=== PATIENT | male | born 1955 | race Caucasian/White ===

== ENCOUNTER 2022-11-28 12:23 | Day surgery (SDC) | payer MEDICARE, MEDICAID ==
[~2022-11-28] VITALS: Ht 177.8 cm; Wt 140.0 kg
[2022-11-28] VITALS (8 sets, daily range): BP systolic 123–169; BP diastolic 80–111; PULSE 75–82; RESP 12–19; TEMP 98.6; O2SAT 95–97
[2022-11-28] MEDS ORDERED: diphenhydrAMINE 25mg capsule PO PRN (12:45)
[2022-11-28] MEDS ORDERED: LORazepam 0.5 MG tablet PO PRN (12:45)
[2022-11-28] MEDS ORDERED: normal saline 1,000 ML IV SCH (12:45)
[2022-11-28] MEDS ORDERED: verapamil 2.5 mg/ml inj IV ONE (13:54)
[2022-11-28] MEDS ORDERED: iohexol 350MG/ML 100ml bottle IV ONE ×2 (13:54→14:30)
[2022-11-28] MEDS ORDERED: midazolam 1 mg/ML 2ml injection ONE (13:54)
[2022-11-28] MEDS ORDERED: LIDOcaine 1% (10mg/ml) 2ml vial ONE (13:54)
[2022-11-28] MEDS ORDERED: nitroGLYCERIN 500mcg/5mL D5W 5 ML IV ONE (13:54)
[2022-11-28] MEDS ORDERED: heparin 1,000unit/ml 10ml vial 10 ML ONE (13:54)
[2022-11-28] MEDS ORDERED: fentaNYL/PF 50MCG/1 ML 2ML syringe ONE (13:54)
[2022-11-28] MEDS ORDERED: ZINC50CA2 PO (14:02)
[2022-11-28] MEDS ORDERED: TADA20TA PO (14:02)
[2022-11-28] MEDS ORDERED: normal saline 1000ml 1,000 ML IV SCH (16:00)
[2022-11-28] MEDS ORDERED: HYDROcodone/acetaminophen 5mg/325mg tablet PO PRN (16:00)
[2022-11-28] MEDS ORDERED: HYDROcodone/acetaminophen 10/325mg tab PO PRN (16:00)
[2022-11-28 16:15] LABS: ISTAT HGB MIX 13.3 g/dl (14.0-17.9); ISTAT Hct MIX 39 %PCV (42-52); ISTAT O2 SATURATION MIX VENOUS 68 % (60-80); ISTAT SOURCE VEN
== END 2022-11-28 17:20 | disposition home or self-care (01) ==
LOC: SSTAY O 12:23
PROVIDERS: ATTEND Student in an Organized Health Care Education/Training Program
DX: I35.0 Nonrheumatic aortic (valve) stenosis (principal); I25.10 Atherosclerotic heart disease of native coronary artery without angina pectoris; I10 Essential (primary) hypertension; E66.9 Obesity, unspecified; Z68.44 Body mass index [BMI] 60.0-69.9, adult; G47.33 Obstructive sleep apnea (adult) (pediatric); I65.29 Occlusion and stenosis of unspecified carotid artery; Z86.16 Personal history of COVID-19; Z79.899 Other long term (current) drug therapy; Z72.89 Other problems related to lifestyle
CPT/HCPCS: 82803; 85014; 93005; 93460; 93571; 99152; 99153; A6258; J1644; J2250; J3490; J7030; Q9967; A6402; C1751; C1769; C1894; J3010

== ENCOUNTER 2023-01-18 14:00 | Inpatient (IN) | payer MEDICARE, MEDICAID ==
[2023-01-12 13:15] LABS: PRE OP PROTIME 10.8 SECONDS (9.0-12.0)
[2023-01-12 13:21] LABS: ALBUMIN 3.4 G/DL (3.4-5.0); ALBUMIN/GLOBULIN RATIO 0.9 (1.1-1.5); ALKALINE PHOSPHATASE 72 IU/L (46-116); BLOOD UREA NITROGEN 15 MG/DL (7-18); CALCIUM 9.2 MG/DL (8.5-10.1); CHLORIDE 104 MMOL/L (99-107); CREATININE 0.88 MG/DL (0.60-1.10); PRE OP ALT 31 U/L (30-65); PRE OP ANION GAP 8 (8-16); PRE OP AST 16 U/L (10-37); PRE OP BILIRUB, TOTAL 0.4 MG/DL (0.0-1.0); PRE OP SODIUM 139 MMOL/L (135-145); TOTAL CARBON DIOXIDE 27.4 MMOL/L (24-32); TOTAL PROTEIN 7.1 G/DL (6.4-8.2); eGFR 87 ML/MIN
[2023-01-12 13:23] LABS: PRE OP POTASSIUM 4.5 MMOL/L (3.4-5.1)
[2023-01-12 13:24] LABS: PRE OP GLUCOSE 212 MG/DL (70-104)
[2023-01-12 13:32] LABS: BILIRUBIN,URINE NEGATIVE (Neg); CLARITY,URINE SLIGHTLY CLOUDY (Clear); COLOR,URINE YELLOW (Yellow); GLUCOSE, URINE 500 mg/dl (Neg); KETONES,URINE TRACE mg/dl (Neg); LEUKOCYTE ESTERASE ,URINE NEGATIVE (Neg); NITRITES, URINE NEGATIVE (Neg); OCCULT BLOOD,URINE NEGATIVE (Neg); PROTEIN,URINE NEGATIVE (Neg)
[2023-01-12 13:36] LABS: UA COLLECTION TYPE CLN CATCH MIDSTREAM
[2023-01-12 13:37] LABS: BACTERIA,URINE NONE SEEN /HPF (Neg); MUCUS STRANDS FEW /LPF (Neg); RBC,URINE NONE SEEN /HPF (0-2); SQUAMOUS EPITHELIAL CELL,UR FEW /LPF (FEW); WBC,URINE NONE SEEN /HPF (0-4)
[2023-01-12 14:08] LABS: BASOPHILS % (AUTO) 0.4 % (0-1); EOSINOPHILS # (AUTO) 0.1 X10'3 (0-0.9); EOSINOPHILS % (AUTO) 1.6 % (0-6); HEMATOCRIT 42.8 % (42.0-52.0); HEMOGLOBIN 14.3 g/dl (14.0-17.9); LYMPHOCYTES # (AUTO) 1.8 X10'3 (1.1-4.8); LYMPHOCYTES % (AUTO) 19.4 % (21-51); MEAN CORPUSCULAR HEMOGLOBIN 29.1 PG (27.0-31.0); MEAN CORPUSCULAR HGB CONC 33.5 g/dL (33.0-36.5); MEAN CORPUSCULAR VOLUME 86.9 FL (78-98); MEAN PLATELET VOLUME 8.3 FL (7.4-10.4); MONOCYTES # (AUTO) 0.6 X10'3 (0-0.9); MONOCYTES % (AUTO) 6.3 % (2-12); NEUTROPHILS # (AUTO) 6.6 X10'3 (1.8-7.7); NEUTROPHILS % (AUTO) 72.3 % (42-75); PLATELET COUNT 209 X10'3 (140-440); RED BLOOD COUNT 4.92 X10'6 (4.70-6.10); RED CELL DISTRIBUTION WIDTH 13.4 % (11.5-14.5); WHITE BLOOD COUNT 9.1 X10'3 (4.5-11.0)
[2023-01-15 06:50] LABS: ABG BASE EXCESS 0.2 mmol/L (-2.0-2.0); ABG HCO3 24.9 mmol/L (22.0-26.0); ABG OXYGEN SATURATION 96.7 % (94-97); ABG PCO2 (T) 40.4 mmHg (35.0-48.0); ABG PH (T) 7.407 (7.340-7.440); ABG PO2 (T) 87.6 mmHg (75.0-100.0); ALLEN'S TEST POSITIVE; FCOHb 0.3 % (0.0-3.9); FHHb 3.3 % (0.0-5.0); FMetHb 0.2 % (0.0-1.5); FO2Hb 96.2 % (94-97); MODE ROOM AIR; TOTAL HEMOGLOBIN 15.3 G/dl (14.0-17.9)
[~2023-01-18] VITALS: Ht 177.8 cm; Wt 140.3 kg
[~2023-01-18 14:00] MED LIST: ASPI-611 PO; ATOR40TA PO; Insulin Reg/NS 100units/100mL 100 ML IV SCH; LORazepam 2 mg/ml vial IV ONE; TADA20TA PO; ZINC50CA2 PO; dextrose 50%-water 50ml dispensing syringe IV PRN; famotidine 20mg tablet PO ONE; metoprolol tartrate 12.5mg (1/2 tablet) PO ONE; ringers solution, lacted 1,000 ML IV SCH
[2023-01-23] VITALS (13 sets, daily range): BP systolic 114–186; BP diastolic 41–102; PULSE 75–89; RESP 13–19; TEMP 97.8; O2SAT 96–100
[2023-01-23] MEDS ORDERED: famotidine 20mg tablet PO ONE (05:30)
[2023-01-23] MEDS ORDERED: LORazepam 2 mg/ml vial IV ONE (05:30)
[2023-01-23] MEDS ORDERED: metoprolol tartrate 12.5mg (1/2 tablet) PO ONE (05:30)
[2023-01-23] MEDS ORDERED: dextrose 50%-water 50ml dispensing syringe IV PRN ×2 (05:30→17:40)
[2023-01-23] MEDS ORDERED: ringers solution, lacted 1,000 ML IV SCH (05:30)
[2023-01-23] MEDS ORDERED: Insulin Reg/NS 100units/100mL 100 ML IV SCH ×2 (05:30→08:15)
[2023-01-23] MEDS ORDERED: ceFAZolin inj. 3,000 MG in normal saline 100ml IV soln 100 ML IV ONE (08:15)
[2023-01-23] MEDS ORDERED: vancomycin 1,500 MG in NS 300ml IV soln IV ONE (08:16)
[2023-01-23] MEDS ORDERED: mupirocin 2% nasal ointment 1gm UD NS STA (11:06)
[2023-01-23] MEDS ORDERED: SUfentanil 50mcg/ml 1ml amp IV ONE ×2 (12:41→12:42)
[2023-01-23] MEDS ORDERED: propofol inj 20 ML IV ONE (12:44)
[2023-01-23] MEDS ORDERED: rocuronium 10mg/ml inj IV ONE ×2 (12:44→12:52)
[2023-01-23] MEDS ORDERED: LIDOcaine 1%/PF 5ML 10 MG/ML VIAL ONE (12:44)
[2023-01-23] MEDS ORDERED: epiNEPHrine 1 mg/ml inj ONE ×2 (12:45→12:59)
[2023-01-23] MEDS ORDERED: BUPIVAcaine/PF 2.5mg/ml (0.25%) 10ml vial ONE (12:45)
[2023-01-23] MEDS ORDERED: ceFAZolin 1000mg inj ONE (12:46)
[2023-01-23] MEDS ORDERED: vancomycin 1,000mg inj ONE (12:46)
[2023-01-23] MEDS ORDERED: LORazepam 2 mg/ml vial ONE (12:47)
[2023-01-23] MEDS ORDERED: nitroGLYCERIN in D5W 50mg/250ml (Tridil) infusion IV ONE (12:52)
[2023-01-23] MEDS ORDERED: aminocaproic acid 250 MG/1 ML inj. ONE (12:52)
[2023-01-23] MEDS ORDERED: sevoflurane 250ml liquid IH ONE (12:52)
[2023-01-23] MEDS ORDERED: protamine sulf. 10mg/ml inj. IV ONE (12:52)
[2023-01-23 13:43] LABS: ABG BASE EXCESS 0.9 mmol/L (-2.0-2.0); ABG HCO3 24.4 mmol/L (22.0-26.0); ABG OXYGEN SATURATION 99.5 % (94-97); ABG PCO2 35.8 mmHg (35.0-48.0); ABG PH 7.452 (7.340-7.440); ABG PO2 396.4 mmHg (75.0-100.0); CL (ABG) 103 mmol/L (99-107); FCOHb 0.3 % (0.0-3.9); FHHb 0.5 % (0.0-5.0); FMetHb 0.3 % (0.0-1.5); FO2Hb 98.9 % (94-97); GLUCOSE (ABG) 177 mg/dl (70-104); IONIZED CA (ABG) 1.12 mmol/L (1.10-1.30); K (ABG) 3.9 mmol/L (3.5-5.1); TOTAL HEMOGLOBIN 14.1 G/dl (14.0-17.9)
[2023-01-23] MEDS ORDERED: ceFAZolin 1000mg inj IR ONE (14:43)
[2023-01-23] MEDS ORDERED: vancomycin 1,000mg inj IVT ONE (14:46)
[2023-01-23] MEDS ORDERED: heparin 10,000 units/1 ML INJ IV ONE (14:47)
[2023-01-23 14:51] LABS: ABG BASE EXCESS VENOUS -2.8 mmol/L (-2.0 - 2.0); ABG HCO3 VENOUS 23.3 mmol/L (21.0-28.0); ABG OXYGEN SATURATION VENOUS 99.6 % (75 - 99 %); ABG PCO2 VENOUS 45.7 mmHg (41.0-54.0); ABG PH (VENOUS) 7.326 (7.310-7.450); CL (ABG) 103 mmol/L (99-107); FCOHb VENOUS 0.3 %; FHHb VENOUS 0.4 %; FO2Hb VENOUS 99.3 %; GLUCOSE (ABG) 160 mg/dl (70-104); IONIZED CA (ABG) 1.14 mmol/L (1.10-1.30); TOTAL HEMOGLOBIN 13.7 G/dl (14.0-17.9)
[2023-01-23] MEDS ORDERED: BUPIVAcaine/PF 2.5mg/ml (0.25%) 10ml vial IJ ONE (15:00)
[2023-01-23 15:10] LABS: ABG BASE EXCESS -0.2 mmol/L (-2.0-2.0); ABG HCO3 25.3 mmol/L (22.0-26.0); ABG OXYGEN SATURATION 99.1 % (94-97); ABG PCO2 45.2 mmHg (35.0-48.0); ABG PH 7.366 (7.340-7.440); ABG PO2 305.4 mmHg (75.0-100.0); CL (ABG) 101 mmol/L (99-107); FCOHb 0.3 % (0.0-3.9); FHHb 0.9 % (0.0-5.0); FMetHb 0.3 % (0.0-1.5); FO2Hb 98.5 % (94-97); GLUCOSE (ABG) 134 mg/dl (70-104); IONIZED CA (ABG) 1.01 mmol/L (1.10-1.30); K (ABG) 3.5 mmol/L (3.5-5.1); TOTAL HEMOGLOBIN 10.8 G/dl (14.0-17.9)
[2023-01-23 15:43] LABS: ABG BASE EXCESS VENOUS -0.1 mmol/L (-2.0 - 2.0); ABG HCO3 VENOUS 25.3 mmol/L (21.0-28.0); ABG OXYGEN SATURATION VENOUS 82.7 % (75 - 99 %); ABG PCO2 VENOUS 44.5 mmHg (41.0-54.0); ABG PH (VENOUS) 7.373 (7.310-7.450); ABG PO2 VENOUS 45.1 mmHg (25.0-35.0); CL (ABG) 101 mmol/L (99-107); FHHb VENOUS 17.2 %; FMetHb VENOUS 0.3 % (0.0 - 0.5); FO2Hb VENOUS 82.5 %; GLUCOSE (ABG) 136 mg/dl (70-104); K (ABG) 3.6 mmol/L (3.5-5.1); TOTAL HEMOGLOBIN 10.4 G/dl (14.0-17.9)
[2023-01-23 16:07] LABS: ABG BASE EXCESS 0.2 mmol/L (-2.0-2.0); ABG HCO3 25.9 mmol/L (22.0-26.0); ABG OXYGEN SATURATION 99.4 % (94-97); ABG PCO2 46.6 mmHg (35.0-48.0); ABG PH 7.362 (7.340-7.440); CL (ABG) 102 mmol/L (99-107); FCOHb 0.3 % (0.0-3.9); FHHb 0.6 % (0.0-5.0); FMetHb 0.3 % (0.0-1.5); FO2Hb 98.8 % (94-97); GLUCOSE (ABG) 143 mg/dl (70-104); IONIZED CA (ABG) 1.02 mmol/L (1.10-1.30); K (ABG) 3.8 mmol/L (3.5-5.1); TOTAL HEMOGLOBIN 10.7 G/dl (14.0-17.9)
[2023-01-23 16:48] LABS: ABG BASE EXCESS 0.6 mmol/L (-2.0-2.0); ABG HCO3 24.7 mmol/L (22.0-26.0); ABG OXYGEN SATURATION 99.3 % (94-97); ABG PCO2 37.6 mmHg (35.0-48.0); ABG PH 7.435 (7.340-7.440); ABG PO2 335.5 mmHg (75.0-100.0); CL (ABG) 101 mmol/L (99-107); FCOHb 0.3 % (0.0-3.9); FHHb 0.7 % (0.0-5.0); FMetHb 0.3 % (0.0-1.5); FO2Hb 98.7 % (94-97); GLUCOSE (ABG) 136 mg/dl (70-104); IONIZED CA (ABG) 1.29 mmol/L (1.10-1.30); K (ABG) 4.2 mmol/L (3.5-5.1); TOTAL HEMOGLOBIN 9.8 G/dl (14.0-17.9)
[2023-01-23] MEDS ORDERED: albumin (Human) 5% 250ml 250 ML IV ONE ×2 (17:04→18:02)
[2023-01-23 17:21] LABS: ABG BASE EXCESS -2.4 mmol/L (-2.0-2.0); ABG HCO3 20.9 mmol/L (22.0-26.0); ABG OXYGEN SATURATION 98.9 % (94-97); ABG PCO2 30.9 mmHg (35.0-48.0); ABG PH 7.449 (7.340-7.440); ABG PO2 160.5 mmHg (75.0-100.0); CL (ABG) 104 mmol/L (99-107); FCOHb 0.3 % (0.0-3.9); FHHb 1.1 % (0.0-5.0); FMetHb 0.3 % (0.0-1.5); FO2Hb 98.3 % (94-97); GLUCOSE (ABG) 116 mg/dl (70-104); IONIZED CA (ABG) 1.13 mmol/L (1.10-1.30); K (ABG) 3.8 mmol/L (3.5-5.1); TOTAL HEMOGLOBIN 9.8 G/dl (14.0-17.9)
[2023-01-23 17:24] LABS: ACTIVATED CLOTTING TIME 129 SEC (101-148)
[2023-01-23] MEDS ORDERED: sodium chloride 0.45% 1,000 ML IV SCH (17:40)
[2023-01-23] MEDS ORDERED: bisacodyl 10mg suppository rectal RC PRN (17:40)
[2023-01-23] MEDS ORDERED: NORepinephrine 8mg/ 250ml NS 250 ML IV PRN (17:40)
[2023-01-23] MEDS ORDERED: mineral oil 133ml enema RC PRN (17:40)
[2023-01-23] MEDS ORDERED: insulin glargine (Lantus) pen - multi-dose SQ PRN (17:40)
[2023-01-23] MEDS ORDERED: potassium Cl 20 mEq SR tablet PO PRN (17:40)
[2023-01-23] MEDS ORDERED: magnesium 2GM in 50ml NS 50 ML IV PRN (17:40)
[2023-01-23] MEDS ORDERED: potassium Cl 40MEQ/1/2NS 520ml 520 ML IV PRN (17:40)
[2023-01-23] MEDS ORDERED: metoclopramide 5 mg/ml inj IV PRN (17:40)
[2023-01-23] MEDS ORDERED: sodium phosphate inj. 15 MMOL in dextrose 5%-water 250 ML IV PRN (17:40)
[2023-01-23] MEDS ORDERED: niCARDipine-NS 40mg/200ml IVPB 200 ML IV PRN (17:40)
[2023-01-23] MEDS ORDERED: ondansetron/PF 4mg/2ml inj IV PRN (17:40)
[2023-01-23] MEDS ORDERED: nitroGLYCERIN-Tridil 50MG/D5W 250 ML IV SCH (17:40)
[2023-01-23] MEDS: Insulin Reg/NS 100units/100mL 100 ML IV SCH (17:40)
[2023-01-23] MEDS ORDERED: Neutra Phos packet PO PRN (17:40)
[2023-01-23] MEDS ORDERED: potassium Cl 40MEQ/270ML bag 250 ML IV PRN (17:40)
[2023-01-23] MEDS ORDERED: magnesium hydroxide 30ml (MOM) UD suspension PO PRN (17:40)
[2023-01-23] MEDS ORDERED: sodium phosphate inj. 30 MMOL in dextrose 5%-water 250 ML IV PRN (17:40)
[2023-01-23] MEDS ORDERED: morphine 2 MG/ML inj. syringe IV PRN (17:40)
[2023-01-23] MEDS ORDERED: acetaminophen 325mg tablet PO PRN ×2 (17:40)
[2023-01-23] MEDS ORDERED: potassium CL 10mEq/100ml bag 100 ML IV PRN (17:40)
[2023-01-23] MEDS ORDERED: albumin (Human) 5% 250ml 250 ML IV PRN (17:40)
[2023-01-23] MEDS ORDERED: magnesium 4gm in 100ml NS 100 ML IV PRN (17:40)
[2023-01-23 17:55] LABS: APTT 29 SECONDS (22-32); INR 1.5 INR; PROTHROMBIN TIME 15.8 SECONDS (9.0-12.0)
[2023-01-23 17:59] LABS: BASOPHILS % (AUTO) 0.2 % (0-1); EOSINOPHILS # (AUTO) 0.1 X10'3 (0-0.9); EOSINOPHILS % (AUTO) 0.7 % (0-6); HEMATOCRIT 26.2 % (42.0-52.0); LYMPHOCYTES # (AUTO) 1.2 X10'3 (1.1-4.8); LYMPHOCYTES % (AUTO) 13.6 % (21-51); MEAN CORPUSCULAR HEMOGLOBIN 29.6 PG (27.0-31.0); MEAN CORPUSCULAR HGB CONC 34.4 g/dL (33.0-36.5); MEAN CORPUSCULAR VOLUME 86.2 FL (78-98); MEAN PLATELET VOLUME 8.2 FL (7.4-10.4); MONOCYTES # (AUTO) 0.3 X10'3 (0-0.9); MONOCYTES % (AUTO) 3.1 % (2-12); NEUTROPHILS # (AUTO) 7.1 X10'3 (1.8-7.7); NEUTROPHILS % (AUTO) 82.4 % (42-75); PLATELET COUNT 118 X10'3 (140-440); RED BLOOD COUNT 3.04 X10'6 (4.70-6.10); WHITE BLOOD COUNT 8.6 X10'3 (4.5-11.0)
--- NOTE | 2023-01-23 18:38 | NUR ---
Received to room 2043, accompanied by Sai Abreu, Dr. Stiles and Samson Johnson POLL WATCHER and surgical crew. Placed on ventilator, to recruiting assistant, arterial line and PA line pressure zeroed & monitored. Chest tubes to suction at 20 cm. Jenkins cath to gravity drainage. Dressings are dry and intact. See assessment record. All vasoactive drugs are infusing via central line.
[2023-01-23 18:42] LABS: BASOPHILS # (AUTO) 0.1 X10'3 (0-0.2); BASOPHILS % (AUTO) 0.5 % (0-1); EOSINOPHILS # (AUTO) 0.1 X10'3 (0-0.9); EOSINOPHILS % (AUTO) 0.5 % (0-6); HEMOGLOBIN 10.2 g/dl (14.0-17.9); LYMPHOCYTES # (AUTO) 1.1 X10'3 (1.1-4.8); MEAN CORPUSCULAR HEMOGLOBIN 29.5 PG (27.0-31.0); MEAN CORPUSCULAR VOLUME 86.8 FL (78-98); MEAN PLATELET VOLUME 7.8 FL (7.4-10.4); MONOCYTES # (AUTO) 0.5 X10'3 (0-0.9); MONOCYTES % (AUTO) 4.5 % (2-12); NEUTROPHILS # (AUTO) 10.1 X10'3 (1.8-7.7); NEUTROPHILS % (AUTO) 85.5 % (42-75); PLATELET COUNT 178 X10'3 (140-440); RED BLOOD COUNT 3.45 X10'6 (4.70-6.10); RED CELL DISTRIBUTION WIDTH 13.2 % (11.5-14.5); WHITE BLOOD COUNT 11.8 X10'3 (4.5-11.0)
[2023-01-23 18:48] LABS: ABG BASE EXCESS -2.7 mmol/L (-2.0-2.0); ABG HCO3 22.2 mmol/L (22.0-26.0); ABG OXYGEN SATURATION 99.2 % (94-97); ABG PCO2 (T) 38.9 mmHg (35.0-48.0); ABG PH (T) 7.374 (7.340-7.440); FHHb 0.8 % (0.0-5.0); FMetHb 0.3 % (0.0-1.5); FO2Hb 98.9 % (94-97); MODE Vent- SIMV VC; PATIENT TEMPERATURE 36.9; PEEP 5 cm H2O; RESPIRATORY RATE 14 b/min; TIDAL VOLUME 700 mL; TOTAL HEMOGLOBIN 10.8 G/dl (14.0-17.9)
[2023-01-23 18:57] LABS: ALANINE AMINOTRANSFERASE 18 U/L (12-78); ALBUMIN 2.8 G/DL (3.4-5.0); ALBUMIN/GLOBULIN RATIO 1.6 (1.1-1.5); ALKALINE PHOSPHATASE 37 IU/L (46-116); ANION GAP 10 (8-16); ASPARTATE AMINO TRANSFERASE 25 U/L (10-37); BILIRUBIN,TOTAL 0.6 MG/DL (0.1-1.0); BLOOD UREA NITROGEN 12 MG/DL (7-18); BUN/CREATININE RATIO 12.1 (10.0-20.0); CALCIUM 7.2 MG/DL (8.5-10.1); CHLORIDE 108 MMOL/L (99-107); CREATININE 0.99 MG/DL (0.60-1.10); GLUCOSE 180 MG/DL (70-104); MAGNESIUM 2.9 MG/DL (1.5-2.4); PHOSPHORUS 1.9 MG/DL (2.3-4.5); SODIUM 141 MMOL/L (135-145); TOTAL CARBON DIOXIDE 22.8 MMOL/L (24-32); TOTAL PROTEIN 4.6 G/DL (6.4-8.2); eCRCL 76 ML/MIN; eGFR 76 ML/MIN
[2023-01-23 19:02] LABS: POTASSIUM 3.7 MMOL/L (3.5-5.1)
[2023-01-23 19:03] LABS: APTT 31 SECONDS (22-32); FIBRINOGEN 204 MG/DL (177-424); INR 1.2 INR; PROTHROMBIN TIME 12.9 SECONDS (9.0-12.0)
[2023-01-23] MEDS: potassium Cl 20mEq/100mL bag 100 ML IV PRN ×2 (19:26→22:07)
[2023-01-23] MEDS ORDERED: mupirocin 2% ointment 22GM NS SCH (20:00)
[2023-01-23 20:21] LABS: TOTAL CELLS COUNTED 100
[2023-01-23 20:22] LABS: PLATELET ESTIMATE NORMAL
[2023-01-23] MEDS: vancomycin/NS 1 GM ADD-VANTAGE 250 ML IV SCH (20:26)
[2023-01-23] MEDS: sennosides/docusate sodium tablet PO SCH (20:59)
[2023-01-23] MEDS: atorvastatin 10mg tablet PO SCH (20:59)
[2023-01-23] MEDS: morphine 4 MG/ML inj SYRINge IV PRN ×2 (21:25→21:28)
--- NOTE | 2023-01-23 23:30 | NUR ---
pt switched to cpap will monitor closely
[2023-01-24] VITALS (28 sets, daily range): BP systolic 100–162; BP diastolic 40–75; PULSE 81–101; RESP 13–31; O2SAT 92–98
[2023-01-24] MEDS: ceFAZolin/D5W- 1GM premix 50 ML IV SCH ×3 (00:22→16:14)
[2023-01-24 00:27] LABS: ABG BASE EXCESS -7.1 mmol/L (-2.0-2.0); ABG HCO3 18.3 mmol/L (22.0-26.0); ABG OXYGEN SATURATION 97.4 % (94-97); ABG PCO2 (T) 37.1 mmHg (35.0-48.0); ABG PH (T) 7.312 (7.340-7.440); ABG PO2 (T) 109.7 mmHg (75.0-100.0); FCOHb 0.3 % (0.0-3.9); FHHb 2.6 % (0.0-5.0); FMetHb 0.3 % (0.0-1.5); FO2Hb 96.8 % (94-97); PATIENT TEMPERATURE 37.4; PEEP 5 cm H2O; TOTAL HEMOGLOBIN 10.3 G/dl (14.0-17.9)
[2023-01-24 00:43] LABS: BASOPHILS % (AUTO) 0.1 % (0-1); EOSINOPHILS % (AUTO) 0 % (0-6); HEMATOCRIT 28.1 % (42.0-52.0); HEMOGLOBIN 9.6 g/dl (14.0-17.9); LYMPHOCYTES # (AUTO) 0.5 X10'3 (1.1-4.8); LYMPHOCYTES % (AUTO) 4.1 % (21-51); MEAN CORPUSCULAR HEMOGLOBIN 29.6 PG (27.0-31.0); MEAN CORPUSCULAR HGB CONC 34.2 g/dL (33.0-36.5); MEAN CORPUSCULAR VOLUME 86.7 FL (78-98); MEAN PLATELET VOLUME 7.9 FL (7.4-10.4); MONOCYTES # (AUTO) 0.4 X10'3 (0-0.9); MONOCYTES % (AUTO) 3.4 % (2-12); NEUTROPHILS # (AUTO) 12.1 X10'3 (1.8-7.7); NEUTROPHILS % (AUTO) 92.4 % (42-75); PLATELET COUNT 209 X10'3 (140-440); RED BLOOD COUNT 3.24 X10'6 (4.70-6.10); RED CELL DISTRIBUTION WIDTH 13.3 % (11.5-14.5); WHITE BLOOD COUNT 13.1 X10'3 (4.5-11.0)
[2023-01-24 00:54] LABS: ABG BASE EXCESS -6.5 mmol/L (-2.0-2.0); ABG PCO2 (T) 38.4 mmHg (35.0-48.0); ABG PH (T) 7.314 (7.340-7.440); ABG PO2 (T) 99.7 mmHg (75.0-100.0); FCOHb 0.1 % (0.0-3.9); FMetHb 0.3 % (0.0-1.5); FO2Hb 96.6 % (94-97); MODE VENT-CPAP/PS; PATIENT TEMPERATURE 37.4; PEEP 5 cm H2O; TOTAL HEMOGLOBIN 10.5 G/dl (14.0-17.9)
[2023-01-24 00:55] LABS: ALANINE AMINOTRANSFERASE 19 U/L (12-78); ALBUMIN 3.2 G/DL (3.4-5.0); ALBUMIN/GLOBULIN RATIO 1.5 (1.1-1.5); ALKALINE PHOSPHATASE 41 IU/L (46-116); ANION GAP 10 (8-16); ASPARTATE AMINO TRANSFERASE 28 U/L (10-37); BILIRUBIN,TOTAL 0.7 MG/DL (0.1-1.0); BLOOD UREA NITROGEN 18 MG/DL (7-18); BUN/CREATININE RATIO 12.9 (10.0-20.0); CALCIUM 7.5 MG/DL (8.5-10.1); CHLORIDE 107 MMOL/L (99-107); GLUCOSE 215 MG/DL (70-104); MAGNESIUM 2.6 MG/DL (1.5-2.4); PHOSPHORUS 4.5 MG/DL (2.3-4.5); POTASSIUM 4.4 MMOL/L (3.5-5.1); SODIUM 140 MMOL/L (135-145); TOTAL CARBON DIOXIDE 22.8 MMOL/L (24-32); TOTAL PROTEIN 5.3 G/DL (6.4-8.2); eCRCL 54 ML/MIN; eGFR 51 ML/MIN
[2023-01-24] MEDS: HYDROcodone/acetaminophen 10/325mg tab PO PRN ×3 (04:38→18:19)
--- NOTE | 2023-01-24 06:15 | NUR ---
Patient in room ICU 2043. I have received report from BEBA Ty and had the opportunity to ask questions and assume patient care.
[2023-01-24] MEDS ORDERED: dextrose 50%-water 50ml dispensing syringe IV PRN ×2 (07:05)
[2023-01-24] MEDS ORDERED: DEXTROSE 15 GM of carb/4 tabs (each vial/BOTTLE has 4 tablets) PO PRN ×2 (07:05)
[2023-01-24] MEDS ORDERED: glucagon, human recombinant 1mg kit SUBCUT PRN (07:05)
[2023-01-24 07:58] LABS: BASOPHILS % (AUTO) 0.1 % (0-1); EOSINOPHILS % (AUTO) 0 % (0-6); HEMATOCRIT 27.3 % (42.0-52.0); HEMOGLOBIN 9.3 g/dl (14.0-17.9); LYMPHOCYTES # (AUTO) 0.6 X10'3 (1.1-4.8); LYMPHOCYTES % (AUTO) 3.8 % (21-51); MEAN CORPUSCULAR HEMOGLOBIN 29.4 PG (27.0-31.0); MEAN CORPUSCULAR VOLUME 86.6 FL (78-98); MEAN PLATELET VOLUME 8.1 FL (7.4-10.4); MONOCYTES # (AUTO) 1.1 X10'3 (0-0.9); NEUTROPHILS % (AUTO) 89.1 % (42-75); PLATELET COUNT 188 X10'3 (140-440); RED BLOOD COUNT 3.15 X10'6 (4.70-6.10); RED CELL DISTRIBUTION WIDTH 13.6 % (11.5-14.5); WHITE BLOOD COUNT 15.7 X10'3 (4.5-11.0)
[2023-01-24] MEDS ORDERED: metoprolol tartrate 12.5mg (1/2 tablet) PO SCH ×2 (08:00→20:00)
[2023-01-24] MEDS ORDERED: albumin (Human) 5% 250ml 250 ML IV ONE (08:15)
[2023-01-24 08:20] LABS: ALANINE AMINOTRANSFERASE 14 U/L (12-78); ALBUMIN 3.2 G/DL (3.4-5.0); ALBUMIN/GLOBULIN RATIO 1.2 (1.1-1.5); ALKALINE PHOSPHATASE 40 IU/L (46-116); ANION GAP 8 (8-16); ASPARTATE AMINO TRANSFERASE 42 U/L (10-37); BILIRUBIN,TOTAL 0.5 MG/DL (0.1-1.0); BLOOD UREA NITROGEN 20 MG/DL (7-18); BUN/CREATININE RATIO 17.2 (10.0-20.0); CALCIUM 8.1 MG/DL (8.5-10.1); CHLORIDE 105 MMOL/L (99-107); CREATININE 1.16 MG/DL (0.60-1.10); GLUCOSE 215 MG/DL (70-104); POTASSIUM 5.1 MMOL/L (3.5-5.1); SODIUM 137 MMOL/L (135-145); TOTAL CARBON DIOXIDE 23.8 MMOL/L (24-32); TOTAL PROTEIN 5.8 G/DL (6.4-8.2); eCRCL 65 ML/MIN; eGFR 63 ML/MIN
[2023-01-24] MEDS: aspirin 81mg tab.chew PO SCH (08:33)
[2023-01-24] MEDS: sennosides/docusate sodium tablet PO SCH ×2 (08:34→20:27)
[2023-01-24] MEDS: vancomycin/NS 1 GM ADD-VANTAGE 250 ML IV SCH ×2 (08:38→20:27)
[2023-01-24] MEDS: insulin Lispro (HumaLOG) vial - multi-dose SQ SCH ×3 (08:38→20:52)
[2023-01-24] MEDS ORDERED: metoprolol tartrate 12.5mg (1/2 tablet) PO ONE (09:35)
--- NOTE | 2023-01-24 11:09 | NUR ---
Initial: Pt admit for severe aortic stenosis in association with significant three-vessel coronary disease. Noted pt with an elevated A1c of 8.1% with no PMH DM per EMR. RN states she received in report that pt has been provided with a DM dx this admit. Pt currently POD #1 s/p CABG x 3 and AVR, just extubated early this morning per EMR. Pt would benefit from post CABG and DM nutrition therapy educations as appropriate. Pt currently on a no concentrated sweets diet, pending documentation of PO intake. No documented BM since admit though pt with routine and PRN bowel care available. Will continue to follow closely and make recommendations as appropriate. Recommendations: 1) Continue no concentrated sweets diet; monitor BG trends and need for CHO controlled diet 2) Monitor need for ONS/additional protein 3) Routine bowel care 4) Weekly scaled weights 5) DM and post CABG nutrition therapy educations as appropriate; pt s/p CABG x3 and AVR 01/23, A1c 8.1% new DM dx this admit Addendum: 01/24/23 at [address] Amended: Links added.
--- NOTE | 2023-01-24 18:23 | NUR ---
Problems reprioritized. Patient report given, questions answered & plan of care reviewed with BEBA Reed.
[2023-01-24] MEDS: mupirocin 2% nasal ointment 1gm UD NS SCH (20:27)
[2023-01-24] MEDS: atorvastatin 10mg tablet PO SCH (20:27)
[2023-01-25] VITALS (25 sets, daily range): BP systolic 111–154; BP diastolic 54–90; PULSE 75–95; RESP 12–25; O2SAT 94–97
[2023-01-25] MEDS: ceFAZolin/D5W- 1GM premix 50 ML IV SCH ×2 (00:16→08:02)
[2023-01-25] MEDS: HYDROcodone/acetaminophen 10/325mg tab PO PRN ×2 (02:14→23:32)
[2023-01-25] MEDS: Insulin Reg/NS 100units/100mL 100 ML IV SCH (03:00)
[2023-01-25 03:17] LABS: BASOPHILS % (AUTO) 0.2 % (0-1); EOSINOPHILS % (AUTO) 0 % (0-6); HEMOGLOBIN 8.8 g/dl (14.0-17.9); LYMPHOCYTES # (AUTO) 0.9 X10'3 (1.1-4.8); LYMPHOCYTES % (AUTO) 5.8 % (21-51); MEAN CORPUSCULAR HEMOGLOBIN 29.3 PG (27.0-31.0); MEAN CORPUSCULAR HGB CONC 33.8 g/dL (33.0-36.5); MEAN CORPUSCULAR VOLUME 86.5 FL (78-98); MEAN PLATELET VOLUME 8.3 FL (7.4-10.4); MONOCYTES # (AUTO) 1.3 X10'3 (0-0.9); MONOCYTES % (AUTO) 8.6 % (2-12); NEUTROPHILS % (AUTO) 85.4 % (42-75); PLATELET COUNT 148 X10'3 (140-440); RED CELL DISTRIBUTION WIDTH 13.5 % (11.5-14.5); WHITE BLOOD COUNT 15.2 X10'3 (4.5-11.0)
[2023-01-25 03:26] LABS: ALBUMIN 3.4 G/DL (3.4-5.0); ANION GAP 5 (8-16); BLOOD UREA NITROGEN 23 MG/DL (7-18); BUN/CREATININE RATIO 24.2 (10.0-20.0); CALCIUM 8.2 MG/DL (8.5-10.1); CHLORIDE 100 MMOL/L (99-107); CREATININE 0.95 MG/DL (0.60-1.10); GLUCOSE 212 MG/DL (70-104); POTASSIUM 4.7 MMOL/L (3.5-5.1); SODIUM 133 MMOL/L (135-145); TOTAL CARBON DIOXIDE 27.9 MMOL/L (24-32); eCRCL 79 ML/MIN; eGFR 79 ML/MIN
--- NOTE | 2023-01-25 06:30 | NUR ---
Patient in room ICU 2043. I have received report from Manish and had the opportunity to ask questions and assume patient care.
[2023-01-25] MEDS ORDERED: potassium Cl 40MEQ/270ML bag 250 ML IV PRN (07:55)
[2023-01-25] MEDS ORDERED: potassium Cl 40MEQ/1/2NS 520ml 520 ML IV PRN (07:55)
[2023-01-25] MEDS ORDERED: magnesium 4gm in 100ml NS 100 ML IV PRN (07:55)
[2023-01-25] MEDS ORDERED: magnesium 2GM in 50ml NS 50 ML IV PRN (07:55)
[2023-01-25] MEDS ORDERED: potassium CL 10mEq/100ml bag 100 ML IV PRN (07:55)
[2023-01-25] MEDS ORDERED: potassium Cl 20 mEq SR tablet PO PRN ×2 (07:55)
[2023-01-25] MEDS ORDERED: potassium Cl 20mEq/100mL bag 100 ML IV PRN (07:55)
[2023-01-25] MEDS: aspirin 81mg tab.chew PO SCH (08:00)
[2023-01-25] MEDS: pantoprazole 40mg Tablet.DR PO SCH (08:01)
[2023-01-25] MEDS: metoprolol tartrate 50mg tablet PO SCH ×2 (08:01→19:11)
[2023-01-25] MEDS: mupirocin 2% nasal ointment 1gm UD NS SCH (08:01)
[2023-01-25] MEDS: sennosides/docusate sodium tablet PO SCH ×2 (08:01→19:11)
[2023-01-25] MEDS: insulin Lispro (HumaLOG) vial - multi-dose SQ SCH ×2 (08:04→12:52)
[2023-01-25] MEDS: magnesium Cl slow-release 64mg tablet PO SCH ×2 (11:04→19:11)
--- NOTE | 2023-01-25 13:58 | NUR ---
F/u: Attempted visit with pt at bedside however pt sleeping. Will f/u at another time. Addendum: 01/25/23 at [address] Amended: Links added.
--- NOTE | 2023-01-25 14:57 | NUR ---
ashleyey d/c per order
--- NOTE | 2023-01-25 18:29 | NUR ---
Problems reprioritized. Patient report given, questions answered & plan of care reviewed with Kianna.
[2023-01-25] MEDS: atorvastatin 10mg tablet PO SCH (20:53)
[2023-01-25] MEDS: insulin glargine (Lantus) pen - multi-dose SQ SCH (21:02)
[2023-01-26] VITALS (14 sets, daily range): BP systolic 121–174; BP diastolic 71–102; PULSE 63–90; RESP 12–27; TEMP 97.8–99.2; O2SAT 90–98
[2023-01-26 02:34] LABS: BASOPHILS % (AUTO) 0 % (0-1); EOSINOPHILS % (AUTO) 0 % (0-6); HEMATOCRIT 25.8 % (42.0-52.0); HEMOGLOBIN 8.7 g/dl (14.0-17.9); LYMPHOCYTES # (AUTO) 1.2 X10'3 (1.1-4.8); LYMPHOCYTES % (AUTO) 7.9 % (21-51); MEAN CORPUSCULAR HEMOGLOBIN 29.2 PG (27.0-31.0); MEAN CORPUSCULAR HGB CONC 33.7 g/dL (33.0-36.5); MEAN CORPUSCULAR VOLUME 86.8 FL (78-98); MEAN PLATELET VOLUME 8.1 FL (7.4-10.4); MONOCYTES # (AUTO) 1.3 X10'3 (0-0.9); MONOCYTES % (AUTO) 8.8 % (2-12); NEUTROPHILS # (AUTO) 12.8 X10'3 (1.8-7.7); NEUTROPHILS % (AUTO) 83.3 % (42-75); PLATELET COUNT 148 X10'3 (140-440); RED BLOOD COUNT 2.97 X10'6 (4.70-6.10); RED CELL DISTRIBUTION WIDTH 13.7 % (11.5-14.5); WHITE BLOOD COUNT 15.4 X10'3 (4.5-11.0)
[2023-01-26 02:39] LABS: ANION GAP 5 (8-16); BLOOD UREA NITROGEN 20 MG/DL (7-18); BUN/CREATININE RATIO 23.8 (10.0-20.0); CALCIUM 8.4 MG/DL (8.5-10.1); CHLORIDE 101 MMOL/L (99-107); CREATININE 0.84 MG/DL (0.60-1.10); GLUCOSE 169 MG/DL (70-104); POTASSIUM 4.5 MMOL/L (3.5-5.1); SODIUM 136 MMOL/L (135-145); TOTAL CARBON DIOXIDE 29.9 MMOL/L (24-32); eCRCL 89 ML/MIN; eGFR > 90 ML/MIN
--- NOTE | 2023-01-26 05:05 | NUR ---
Awake, requesting to get up to chair. Assisted up to chair with min assist. using cardiac precautions appropriately. RIJ DC'd at this time without complication. Direct pressure applied x 5min, then DSD applied.
--- NOTE | 2023-01-26 06:20 | NUR ---
Report called to BEBA New on Tele. Opportunity for questions provided, all questions answered. Verbalizes understanding of info given
--- NOTE | 2023-01-26 06:30 | NUR ---
Patient in room PCU 3023. I have received report from BEBA Hutchison and had the opportunity to ask questions and assume patient care.
--- NOTE | 2023-01-26 06:30 | NUR ---
pt tx to tele in by keisha and nilsa
[2023-01-26] MEDS: pantoprazole 40mg Tablet.DR PO SCH (07:50)
[2023-01-26] MEDS: aspirin 81mg tab.chew PO SCH (07:50)
[2023-01-26] MEDS ORDERED: magnesium citrate 296ml oral solution PO ONE (08:35)
[2023-01-26] MEDS ORDERED: METF-1203 PO (08:40)
[2023-01-26] MEDS ORDERED: HYDR-3972 PO (08:40)
[2023-01-26] MEDS ORDERED: METO50TA16 PO (08:40)
[2023-01-26] MEDS: magnesium Cl slow-release 64mg tablet PO SCH ×2 (09:34→21:26)
[2023-01-26] MEDS: sennosides/docusate sodium tablet PO SCH ×2 (09:34→21:26)
[2023-01-26] MEDS: metoprolol tartrate 50mg tablet PO SCH ×2 (09:34→21:27)
[2023-01-26] MEDS: insulin Lispro (HumaLOG) vial - multi-dose SQ SCH ×3 (09:58→19:08)
[2023-01-26] MEDS: HYDROcodone/acetaminophen 10/325mg tab PO PRN ×2 (13:54→21:28)
--- NOTE | 2023-01-26 14:08 | NUR ---
Reassessment: Pt continues on no concentrated sweets diet with overall poor PO intake, documented with average 48% PO intake, however up to 100% PO intake of breakfast this morning. Pt seen at bedside, states appetite has been low since surgery and agrees to Ensure and Rao shake to optimize nutrient intake and promote wound healing, to be sent pending physician approval in EMR. Additional food preferences were obtained and d/w dietary, see below. Pt denies food allergies, difficult chewing/swallowing, or difficulty feeding self with incision site. Pt provided with written and verbal post CABG nutrition therapy education and written DM education as pt reports knowledge on DM management d/t significant family hx of DM. Pt states he currently does not have a PCP and is unaware of what DM medications he may receive upon discharge. RD encouraged pt to obtain a PCP for further DM management and d/w physician regarding medication rx. Pt provided with RD contact information and encouraged to reach out if needed. Information obtained from pt was d/w bedside RN who will d/w attending physician. Noted pt still with no BM since admit, currently receiving routine bowel care and with additional PRN bowel care available. Noted pt received one time Magnesium Citrate today. Per RN pt to receive PRN bowel care if no BM today. Will continue to follow closely. Recommendations: 1) Continue no concentrated sweets diet; monitor BG trends and need for CHO controlled diet 2) Chocolate Ensure Enlive TID, vanilla Rao shake BIDLD, pending physician approval in EMR 3) [place] food preferences: No broccoli, peas, green beans, asparagus, cauliflower, or brussel sprouts 4) Routine and PRN bowel care 5) Weekly scaled weights Addendum: 01/26/23 at [address] Amended: Links added.
[2023-01-26] MEDS: JUVEN Shake w/Arg/Glut/Ca2+Bmb (Juven 19.3gm) pkt 240ml PO SCH (17:30)
[2023-01-26] MEDS: lactose-reduced food (Ensure Enlive) - 237ml bottle PO SCH (18:00)
--- NOTE | 2023-01-26 18:18 | NUR ---
Problems reprioritized. Patient report given, questions answered & plan of care reviewed with Berenice, NEGATIVE NOTCHER.
[2023-01-26] MEDS: insulin glargine (Lantus) pen - multi-dose SQ SCH (21:23)
[2023-01-26] MEDS: atorvastatin 10mg tablet PO SCH (21:27)
[2023-01-27] VITALS (7 sets, daily range): BP systolic 118–139; BP diastolic 66–72; PULSE 70–82; RESP 14–18; TEMP 97.9–99.3; O2SAT 93–98
--- NOTE | 2023-01-27 04:15 | NUR ---
I AGREE WITH BROOMMAKING SUPERVISOR'S ASSESSMENT
[2023-01-27 06:51] LABS: BASOPHILS % (AUTO) 0.2 % (0-1); EOSINOPHILS # (AUTO) 0.1 X10'3 (0-0.9); EOSINOPHILS % (AUTO) 0.7 % (0-6); HEMATOCRIT 27.4 % (42.0-52.0); HEMOGLOBIN 9.3 g/dl (14.0-17.9); LYMPHOCYTES # (AUTO) 1.8 X10'3 (1.1-4.8); LYMPHOCYTES % (AUTO) 14.4 % (21-51); MEAN CORPUSCULAR HEMOGLOBIN 29.6 PG (27.0-31.0); MEAN CORPUSCULAR HGB CONC 34.1 g/dL (33.0-36.5); MEAN CORPUSCULAR VOLUME 86.9 FL (78-98); MEAN PLATELET VOLUME 8.3 FL (7.4-10.4); MONOCYTES # (AUTO) 1.3 X10'3 (0-0.9); MONOCYTES % (AUTO) 9.9 % (2-12); NEUTROPHILS # (AUTO) 9.5 X10'3 (1.8-7.7); NEUTROPHILS % (AUTO) 74.8 % (42-75); PLATELET COUNT 189 X10'3 (140-440); RED BLOOD COUNT 3.15 X10'6 (4.70-6.10); RED CELL DISTRIBUTION WIDTH 13.2 % (11.5-14.5); WHITE BLOOD COUNT 12.7 X10'3 (4.5-11.0)
[2023-01-27 07:04] LABS: ALBUMIN 2.8 G/DL (3.4-5.0); ANION GAP 5 (8-16); BLOOD UREA NITROGEN 19 MG/DL (7-18); BUN/CREATININE RATIO 25.3 (10.0-20.0); CALCIUM 8.2 MG/DL (8.5-10.1); CHLORIDE 101 MMOL/L (99-107); CREATININE 0.75 MG/DL (0.60-1.10); GLUCOSE 123 MG/DL (70-104); POTASSIUM 3.9 MMOL/L (3.5-5.1); SODIUM 137 MMOL/L (135-145); TOTAL CARBON DIOXIDE 30.7 MMOL/L (24-32); eCRCL 100 ML/MIN; eGFR > 90 ML/MIN
[2023-01-27] MEDS: magnesium Cl slow-release 64mg tablet PO SCH (08:00)
[2023-01-27] MEDS: lactose-reduced food (Ensure Enlive) - 237ml bottle PO SCH ×2 (08:00→13:07)
[2023-01-27] MEDS: pantoprazole 40mg Tablet.DR PO SCH (09:43)
[2023-01-27] MEDS: metoprolol tartrate 50mg tablet PO SCH (09:50)
[2023-01-27] MEDS: aspirin 81mg tab.chew PO SCH (09:51)
[2023-01-27] MEDS: sennosides/docusate sodium tablet PO SCH (09:51)
[2023-01-27] MEDS: HYDROcodone/acetaminophen 10/325mg tab PO PRN (11:15)
[2023-01-27] MEDS: JUVEN Shake w/Arg/Glut/Ca2+Bmb (Juven 19.3gm) pkt 240ml PO SCH (13:06)
--- NOTE | 2023-01-27 13:29 | NUR ---
Pt AOX4, VSS pt's PIV removed with cannula intact. Report called to Barbara at [facility]. Pt in NAD. Pt will transfer by wheelchair and transportation company.
== END 2023-01-27 13:42 | DRG 219 ==
LOC: PAS IN 01-23 09:43 → ICU 2S 01-23 17:59 → PCU 3S 01-26 06:43
PROVIDERS: ADMIT Thoracic Surgery (Cardiothoracic Vascular Surgery); ATTEND Thoracic Surgery (Cardiothoracic Vascular Surgery)
PROC: 02RF08Z Replacement of Aortic Valve with Zooplastic Tissue, Open Approach (ICD-10-PCS; 2023-01-23)
PROC: 021109W Bypass Coronary Artery, Two Arteries from Aorta with Autologous Venous Tissue, Open Approach (ICD-10-PCS; 2023-01-23)
PROC: 06BP4ZZ Excision of Right Saphenous Vein, Percutaneous Endoscopic Approach (ICD-10-PCS; 2023-01-23)
PROC: 5A1221Z Performance of Cardiac Output, Continuous (ICD-10-PCS; 2023-01-23)
PROC: B24BZZ4 Ultrasonography of Heart with Aorta, Transesophageal (ICD-10-PCS; 2023-01-23)
PROC: 30233R1 Transfusion of Nonautologous Platelets into Peripheral Vein, Percutaneous Approach (ICD-10-PCS; 2023-01-23)
PROC: 02100Z9 Bypass Coronary Artery, One Artery from Left Internal Mammary, Open Approach (ICD-10-PCS; principal; 2023-01-23 12:52)
DX: I25.10 Atherosclerotic heart disease of native coronary artery without angina pectoris (principal); I49.01 Ventricular fibrillation; N17.0 Acute kidney failure with tubular necrosis; Z68.41 Body mass index [BMI] 40.0-44.9, adult; D62 Acute posthemorrhagic anemia; I35.0 Nonrheumatic aortic (valve) stenosis; E66.01 Morbid (severe) obesity due to excess calories; G47.33 Obstructive sleep apnea (adult) (pediatric); E78.5 Hyperlipidemia, unspecified; E11.9 Type 2 diabetes mellitus without complications; Z60.2 Problems related to living alone; I10 Essential (primary) hypertension; I87.8 Other specified disorders of veins; E83.51 Hypocalcemia; D72.829 Elevated white blood cell count, unspecified; E77.8 Other disorders of glycoprotein metabolism; G57.12 Meralgia paresthetica, left lower limb; Z79.82 Long term (current) use of aspirin; Z79.84 Long term (current) use of oral hypoglycemic drugs; Z79.899 Other long term (current) drug therapy
CPT/HCPCS: 36415; 36430; 36600; 71045; 71046; 76376; 80048; 80053; 81001; 82330; 82435; 82803; 82947; 82948; 83036; 83735; 84100; 84132; 84295; 85007; 85018; 85025; 85347; 85384; 85610; 85730; 86885; 86900; 86901; 86920; 87070; 87081; 88300; 93005; 93312; 93325; 93930; 93970; 94002; 94010; 94760; 97116; 97161; 97530; A4615; A4618; A5200; A6258; A6449; A7000; A7048; C1751; G0378; J0171; J0690; J1644; J1815; J2060; J2270; J2405; J2704; J2720; J3370; J3480; J3490; J7030; J7040; J7050; J7120; P9016; P9035; P9045